=== PATIENT | male | born 1965 | race African-American/Black ===

== ENCOUNTER 2024-02-24 08:53 | Emergency (ER) | payer OTHER ==
[~2024-02-24] VITALS: Ht 177.8 cm; Wt 92.9 kg
[2024-02-24] MEDS ORDERED: FLON1SPR NARES (09:22)
[2024-02-24] MEDS ORDERED: ALLE24TA7 PO (09:22)
[2024-02-24] MEDS: NS 1,000 ML IV ONE (09:34)
[2024-02-24] MEDS: NITROGLYCERIN 0.4MG SUBL TABLET SL PRN (09:34)
[2024-02-24] MEDS: ONDANSETRON 4MG 2ML VIAL IV ONE (09:48)
[2024-02-24 09:49] LABS: INR 0.94; PROTHROMBIN TIME 12.3 SECONDS (12.5-14.5)
[2024-02-24] MEDS: fentaNYL 100 MCG/2 ML INJECTION IV PRN (09:50)
[2024-02-24 10:04] LABS: LIPASE 29 U/L (12-53)
[2024-02-24 10:05] VITALS: BP 134/79
[2024-02-24] MEDS: NITROGLYCERIN 2% OINT 1 GM *U/D* PKT TOP ONE (10:05)
[2024-02-24 10:06] LABS: ALBUMIN 3.8 G/DL (3.2-5.2); ALKALINE PHOSPHATASE 54 U/L (46-116); ALT/SGPT 39 U/L (7.0-40); AST/SGOT 27 U/L (<34); BILIRUBIN,DIRECT 0.2 MG/DL (<0.4); BILIRUBIN,TOTAL 0.7 MG/DL (0.3-1.2); BLOOD UREA NITROGEN 21 MG/DL (9-23); CALCIUM LEVEL 9.7 MG/DL (8.3-10.6); CARBON DIOXIDE LEVEL 28 MMOL/L (20-31); CHLORIDE LEVEL 107 MMOL/L (98-107); CREATININE FOR GFR 1.26 MG/DL (0.70-1.30); GLOMERULAR FILTRATION RATE > 60.0 (>49); GLUCOSE, FASTING 111 MG/DL (74-106); POTASSIUM SERUM 3.8 MMOL/L (3.5-5.1); SODIUM LEVEL 139 MMOL/L (136-145)
[2024-02-24 10:07] LABS: FREE T4 1.28 NG/DL (0.89-1.76)
[2024-02-24 10:10] LABS: CPK CREATINE PHOSPHOKINASE 534 U/L (46-171); MB/CK RELATIVE INDEX 0.37 (< OR =4)
[2024-02-24] MEDS ORDERED: ISOVUE-370 76% 100ML VIAL As Ordered ONE (10:15)
[2024-02-24 10:43] LABS: BASO % 0.9 % (0.0-1.0); EOS # 0.2 10^3/uL (0.0-0.5); EOS % 3.5 % (0.0-3.0); HEMATOCRIT 42.8 % (42.0-52.0); HEMOGLOBIN 14.9 g/dl (13.5-17.5); LYMPH # 1.4 10^3/uL (1.5-5.0); LYMPH % 30.5 % (24.0-44.0); MEAN CORPUSCULAR HEMOGLOBIN 32.6 pg (27.0-33.0); MEAN CORPUSCULAR HGB CONC 34.8 g/dl (32.0-36.5); MEAN CORPUSCULAR VOLUME 93.7 fl (80.0-96.0); MONO # 0.6 10^3/uL (0.0-0.8); MONO % 13.6 % (2.0-8.0); NEUTROPHILS # 2.4 10^3/uL (1.5-8.5); NEUTROPHILS % 51.3 % (36.0-66.0); PLATELET COUNT, AUTOMATED 199 10^3/uL (150-450); RED BLOOD COUNT 4.57 10^6/uL (4.30-6.10); WHITE BLOOD COUNT 4.6 10^3/uL (4.0-10.0)
[2024-02-24 10:53] LABS: CK-MB VALUE MASS 1.1 NG/ML (<3.6)
[2024-02-24 10:54] LABS: MB/CK RELATIVE INDEX 0.23 (< OR =4)
[2024-02-24 12:52] LABS: MB/CK RELATIVE INDEX 0.21 (< OR =4)
[2024-02-24] MEDS ORDERED: PROT1TAB2 PO (13:25)
[2024-02-24 13:32] VITALS: BP 139/75; TEMP 98; O2SAT 95
== END 2024-02-24 13:36 | disposition home or self-care (01) ==
LOC: M ED 08:53
DX: R07.9 Chest pain, unspecified (principal); K29.00 Acute gastritis without bleeding; R00.1 Bradycardia, unspecified; K57.30 Diverticulosis of large intestine without perforation or abscess without bleeding; N40.0 Benign prostatic hyperplasia without lower urinary tract symptoms; I45.4 Nonspecific intraventricular block; E78.5 Hyperlipidemia, unspecified; F10.10 Alcohol abuse, uncomplicated; Z79.899 Other long term (current) drug therapy
CPT/HCPCS: 71045; 71275; 74177; 80047; 80048; 80076; 81001; 82550; 82553; 83690; 83880; 84439; 84443; 84484; 85025; 85610; 85730; 93005; 93041; 94760; 96361; 96374; 96375; 99285; J2405; J3010; Q9967